=== PATIENT | male | born 1980 | race Caucasian/White ===

== ENCOUNTER 2022-05-14 03:45 | Emergency (ER) | payer BC, OTHER ==
[~2022-05-14] VITALS: Ht 190.5 cm; Wt 111.5 kg
[2022-05-14] MEDS ORDERED: ONDANSETRON 4 MG/2 ML (SDV) Z0FRAN IVP ONE (04:00)
[2022-05-14] MEDS ORDERED: NS IV 1000 ML 1,000 ML IV SCH (04:00)
--- NOTE | 2022-05-14 04:25 | ED General ---
General Chief Complaint: Neurological Problems Stated Complaint: CONFUSION Source of Information: Patient Exam Limitations: No Limitations History of Present Illness Date Seen by Provider: May 14, 2022 Time Seen by Provider: 03:50 Initial Comments Patient is a 41-year-old male who presents with head injury with loss of consciousness after running into a wall while starting out of bed to use the bathroom. Patient had a fever 103.2 prior to bedtime, complained of nausea and diarrhea, sinus and chest congestion and felt the need to use the bathroom when he ran into a wall and had a brief loss of consciousness along with confusion and memory loss. Incident was witnessed by the patient's spouse. Patient is alert and oriented x3 but does complain of headache and neck pain. Patient has a linear abrasion over his left frontal scalp. He has no visible forehead or scalp hematoma and no midline neck tenderness. He complains of nasal congestion postnasal drip. No other symptoms or complaints. Patient is otherwise healthy but does go to doctors on a routine basis. Date of last tetanus is unknown Timing/Duration: 1/2 Hour Severity: Moderate Modifying Factors: improves with Other Associated Systoms: Other Allergies and Home Medications Allergies Coded Allergies: No Known Drug Allergies (Unverified , 05/14/22) Patient Home Medication List Home Medication List Reviewed: Yes Review of Systems Review of Systems Constitutional: see HPI EENTM: see HPI Respiratory: see HPI Cardiovascular: see HPI Gastrointestinal: see HPI Genitourinary: see HPI Musculoskeletal: see HPI Skin: see HPI Psychiatric/Neurological: See HPI Hematologic/Lymphatic: See HPI Immunological/Allergic: see HPI All Other Systems Reviewed Negative Unless Noted: No Past Oawtggk-Srqglk-Mykpse Hx Patient Social History Tobacco Use?: No Physical Exam Vital Signs Capillary Refill : Height, Weight, BMI Height: '" Weight: lbs. oz. kg; BMI Method: General Appearance: No Apparent Distress, WD/WN Eyes: Bilateral Eye Normal Inspection HEENT: PERRL/EOMI, Normal ENT Inspection, Pharynx Normal, Moist Mucous Membranes, Other (Left frontal scalp abrasion, no hematoma or step-off) Neck: Full Range of Motion, Non Tender, Supple; No Limited Range of Motion, No Tender Midline Respiratory: Chest Non Tender, Lungs Clear, Normal Breath Sounds, No Accessory Muscle Use Cardiovascular: Regular Rate, Rhythm Gastrointestinal: Non Tender, Soft Extremity: Normal Capillary Refill, Normal Inspection, Normal Range of Motion Neurologic/Psychiatric: Alert, Oriented x3, No Motor/Sensory Deficits, microsoft dynamics ax developer II- XII Norm as Tested, Other Skin: Normal Color Focused Exam Sepsis Stage: Ruled Out Progress/Results/Core Measures Suspected Sepsis SIRS Temperature: Pulse: Respiratory Rate: Laboratory Tests 05/14/22 04:22: White Blood Count 11.7H Blood Pressure / Mean: Laboratory Tests 05/14/22 04:22: Platelet Count 166 Results/Orders Lab Results Laboratory Tests Test 05/14/22 04:22 Range/Units White Blood Count 11.7 H 4.3-11.0 10^3/uL Red Blood Count 5.39 4.30-5.52 10^6/uL Hemoglobin 16.3 13.3-17.7 g/dL Hematocrit 47 40-54 % Mean Corpuscular Volume 87 80-99 fL Mean Corpuscular Hemoglobin 30 25-34 pg Mean Corpuscular Hemoglobin Concent 35 32-36 g/dL Red Cell Distribution Width 12.4 10.0-14.5 % Platelet Count 166 130-400 10^3/uL Mean Platelet Volume 11.9 9.0-12.2 fL Immature Granulocyte % (Auto) 1 % Neutrophils (%) (Auto) 79 H 42-75 % Lymphocytes (%) (Auto) 8 L 12-44 % Monocytes (%) (Auto) 11 0-12 % Eosinophils (%) (Auto) 0 0-10 % Basophils (%) (Auto) 0 0-10 % Neutrophils # (Auto) 9.3 H 1.8-7.8 10^3/uL Lymphocytes # (Auto) 1.0 1.0-4.0 10^3/uL Monocytes # (Auto) 1.3 H 0.0-1.0 10^3/uL Eosinophils # (Auto) 0.0 0.0-0.3 10^3/uL Basophils # (Auto) 0.1 0.0-0.1 10^3/uL Immature Granulocyte # (Auto) 0.1 0.0-0.1 10^3/uL My Orders Orders - PATRICIA LEVINE DO Cbc With Automated Diff (05/14/22 03:51) Comprehensive Metabolic Panel (05/14/22 03:51) Troponin I Fs (05/14/22 03:51) Chest 1 View Ap/Pa Only (05/14/22 03:51) Ekg Tracing (05/14/22 03:51) Ct Head/Neck Wo (05/14/22 03:51) Covid 19 Inhouse Test (05/14/22 03:51) Influenza A And B By Pcr (05/14/22 03:51) Isolation Central Supply Req (05/14/22 03:51) Ns Iv 1000 Ml (Sodium Chloride 0.9%) (05/14/22 04:00) Ondansetron Injection (Zofran Injectio (05/14/22 04:00) Dipht,Pertuss(Acell),Tet Adult (Boostrix (05/14/22 04:45) Ketorolac Injection (Toradol Injection) (05/14/22 04:45) Medications Given in ED Current Medications Medications Dose Ordered Sig/Raeann Route Start Time Stop Time Status Last Admin Dose Admin Diphtheria/ Tetanus/Acell Pertussis 0.5 ml ONCE ONCE IM 05/14/22 04:45 05/14/22 04:48 DC 05/14/22 04:41 0.5 ML Ketorolac Tromethamine 30 mg ONCE ONCE IVP 05/14/22 04:45 05/14/22 04:48 DC 05/14/22 04:39 30 MG Ondansetron HCl 4 mg ONCE ONCE IVP 05/14/22 04:00 05/14/22 04:01 DC 05/14/22 04:35 4 MG Vital Signs/I&O Capillary Refill : Departure Communication (Admissions) CT head/cervical spine: No acute findings per radiology report. Chest x-ray: No acute cardiopulmonary disease. Patient with retrograde memory loss with concussion following witnessed head injury. CT head/cervical spine being nonacute. Patient with acute viral syndrome with upper respiratory and GI components. IV fluids given, chest x- ray, basic labs obtained. Symptoms improved with Toradol, Zofran and IV fluids. COVID-positive. Recommendations supportive care, watchful waiting and PCP follow-up. Return precautions and typical closed head injury instructions provided. Patient's spouse verbalizes understanding agreement discharge instructions prior to departure peer Impression Primary Impression: Concussion with loss of consciousness Additional Impressions: Acute cervical sprain COVID-19 Disposition: 01 HOME, SELF-CARE Condition: Stable Departure-Patient Inst. Decision time for Depature: 04:50 Referrals: SULAIMAN MILLER MD (PCP/Family) Primary Care Physician Patient Instructions: Neck Sprain (DC), Concussion in Adults, COVID-19 (DC) Add. Discharge Instructions: You were evaluated in the emergency department for head injury, neck pain, fever and viral symptoms. CT of the head and neck were performed do not show evidence of acute injury. Lab work is positive for COVID. Please go home and rest, avoid strenuous physical activity stimulating environments. Take Tylenol for headache and Zofran as needed for nausea. You may take ibuprofen and Flexeril as needed for additional pain relief and use albuterol as needed for shortness of breath. Follow-up with your PCP in 5-7 days for reevaluation if viral symptoms persist. Return to the ED if you develop new or concerning symptoms. All discharge instructions reviewed with patient and/or family. Voiced understanding. Scripts Albuterol Sulfate (Proventil Hfa) 6.7 Gm Hfa.aer.ad 2 PUFF INH Q6H for SHORTNESS OF BREATH, #1 EACH Prov: PATRICIA LEVINE DO 05/14/22 Cyclobenzaprine HCl (Cyclobenzaprine HCl) 10 Mg Tablet 10 MG PO TID, #30 TAB Prov: PATRICIA LEVINE DO 05/14/22 Ondansetron (Ondansetron Odt) 4 Mg Tab.rapdis 4 MG SL Q4H PRN for NAUSEA/VOMITING, #12 TAB Prov: PATRICIA LEVINE DO 05/14/22 Work/School Note: Family Work Note Patient Received Medical Care In the Emergency Department On: May 14, 2022 Patient Will Be Able to Return to Work/School On: May 19, 2022 PATRICIA LEVINE DO May 14, 2022 04:24
[2022-05-14 04:27] LABS: BASOPHILS # (AUTO) 0.1 10^3/uL (0.0-0.1); BASOPHILS % (AUTO) 0 % (0-10); EOSINOPHILS % (AUTO) 0 % (0-10); HEMATOCRIT 47 % (40-54); HEMOGLOBIN 16.3 g/dL (13.3-17.7); LYMPHOCYTES % (AUTO) 8 % (12-44); MEAN CORPUSCULAR HEMOGLOBIN 30 pg (25-34); MEAN CORPUSCULAR HGB CONC 35 g/dL (32-36); MEAN CORPUSCULAR VOLUME 87 fL (80-99); MEAN PLATELET VOLUME 11.9 fL (9.0-12.2); MONOCYTES # (AUTO) 1.3 10^3/uL (0.0-1.0); MONOCYTES % (AUTO) 11 % (0-12); NEUTROPHILS # (AUTO) 9.3 10^3/uL (1.8-7.8); NEUTROPHILS % (AUTO) 79 % (42-75); PLATELET COUNT 166 10^3/uL (130-400); WHITE BLOOD COUNT 11.7 10^3/uL (4.3-11.0)
[2022-05-14] MEDS ORDERED: TETANUS,DIPTH,PERTUSS P/F (BOOSTRIX) 0.5 ML VIAL IM ONE (04:45)
[2022-05-14] MEDS ORDERED: KETOROLAC 30 MG/ML VIAL IVP ONE (04:45)
[2022-05-14 04:48] LABS: CHLORIDE 102 MMOL/L (98-107); SODIUM 138 MMOL/L (135-145)
[2022-05-14 04:49] LABS: ALANINE AMINOTRANSFERASE 50 U/L (0-55); ALBUMIN 4.6 GM/DL (3.2-4.5); ALKALINE PHOSPHATASE 93 U/L (40-136); BILIRUBIN,TOTAL 0.5 MG/DL (0.1-1.0); BUN/CREATININE RATIO 12; CALCIUM 9.3 MG/DL (8.5-10.1); CARBON DIOXIDE 21 MMOL/L (21-32); GFR ESTIMATED 98; GLUCOSE 151 MG/DL (70-105); TOTAL PROTEIN 7.4 GM/DL (6.4-8.2)
[2022-05-14] MEDS ORDERED: ONDA4TAB11 SL (04:58)
[2022-05-14] MEDS ORDERED: RT-ALBUINH INH (04:58)
[2022-05-14] MEDS ORDERED: CYCL10TA25 PO (04:58)
[2022-05-14 05:29] VITALS: BP 125/69
--- NOTE | 2022-05-14 06:17 | Diagnostic Imaging Report ---
INDICATION: trauma, headache. TECHNIQUE: Single view chest 4:18 AM. CORRELATION STUDY: None FINDINGS: The heart size, mediastinal configuration and pulmonary vascularity are within normal limits. The lungs are clear with no consolidating infiltrate. There is no significant effusion or pneumothorax. IMPRESSION: 1. Negative appearing single view chest. Dictated by: Dictated on workstation # [id number]
--- NOTE | 2022-05-14 06:25 | Diagnostic Imaging Report ---
PROCEDURE: CT head and neck without contrast. TECHNIQUE: Contiguous axial images were obtained from the skull base through the vertex. Noncontrast axial images were then obtained of the soft tissue of the neck. Auto Exposure Controls were utilized during the CT exam to meet ALARA standards for radiation dose reduction. INDICATION: Head and neck injury. CT HEAD: Ventricles and sulci are within normal limits. No sulcal effacement or midline shift is identified. No acute intra-axial or extra-axial hemorrhage is detected. Cisterns are patent. Visualized paranasal sinuses are clear. IMPRESSION: Unremarkable noncontrast CT of the brain. No acute feature is detected. CT cervical spine: Curvature and alignment of the cervical spine is normal. No fracture or subluxation is identified. Prevertebral tissues are within normal limits. Odontoid is intact. IMPRESSION: No acute bony abnormality is detected. Dictated by: Dictated on workstation # [id number]
== END 2022-05-14 05:29 | disposition home or self-care (01) ==
LOC: ER FS 03:50
DX: S06.0X1A Concussion with loss of consciousness of 30 minutes or less, initial encounter (principal); S13.4XXA Sprain of ligaments of cervical spine, initial encounter; S00.01XA Abrasion of scalp, initial encounter; U07.1 COVID-19; Z28.310 Unvaccinated for COVID-19; Z23 Encounter for immunization; W13.3XXA Fall through floor, initial encounter; Y93.02 Activity, running
CPT/HCPCS: 36415; 70450; 70490; 71045; 80053; 84484; 85025; 87636; 90715

== ENCOUNTER 2022-10-15 20:09 | Day surgery (SDC) | payer BC ==
[~2022-10-15] VITALS: Ht 190 cm; Wt 110.5 kg
[~2022-10-15 20:09] MED LIST: CYCL10TA25 PO; ONDA4TAB11 SL; RT-ALBUINH INH
--- NOTE | 2022-10-15 20:24 | ED Chest Pain ---
General Chief Complaint: Chest Pain Stated Complaint: CHEST PAIN |SOB| Nursing Triage Note: PATIENT STATES 1500 TODAY STARTED HAVING CHEST FLUTTERING AND TIGHTNESS. DENIES PAIN. STATES HASN'T GOTTEN ANY BETTER. Source: patient Exam Limitations: no limitations History of Present Illness Date Seen by Provider: Oct 15, 2022 Time Seen by Provider: 20:13 Initial Comments 42-year-old male presents emergency department today for chest tightness and palpitations. Symptoms started about 330 this afternoon and have been persistent throughout the day. He has had similar episodes with excess caffeine intake in the past however symptoms have never lasted this long. He does have some mild shortness of breath within the pain does radiate to his left elbow slightly. No obvious aggravating or alleviating factors. He has no known cardiac history or pulmonary history. He takes no daily medications. All other systems reviewed and negative except documented per HPI. Voice recognition software was used to help create this chart Allergies and Home Medications Allergies Coded Allergies: No Known Drug Allergies (Unverified , 05/14/22) Patient Home Medication List Home Medication List Reviewed: Yes Albuterol Sulfate (Proventil Hfa) 6.7 Gm Hfa.aer.ad, 2 PUFF INH Q6H Prescribed by: PATRICIA LEVINE on 05/14/22 0458 Cyclobenzaprine HCl (Cyclobenzaprine HCl) 10 Mg Tablet, 10 MG PO TID Prescribed by: PATRICIA LEVINE on 05/14/22 0458 Ondansetron (Ondansetron Odt) 4 Mg Tab.rapdis, 4 MG SL Q4H PRN for NAUSEA/VOMITING Prescribed by: PATRICIA LEVINE on 05/14/22 0458 Review of Systems Review of Systems Constitutional: see HPI Past Zhawrwy-Ipsfde-Dpaigj Hx Patient Social History Tobacco Use?: No Use of E-Cig and/or Vaping dev: No Substance use?: No Alcohol Use?: Yes Alcohol type: Beer Alcohol Frequency: Once in a while Immunizations Up To Date First/Initial COVID19 Vaccinat: Unvaccinated Second COVID19 Vaccination Tru: Unvaccinated Third COVID19 Vaccination Date: Unvaccinated Physical Exam Vital Signs Vital Signs - First Documented 10/15/22 10/15/22 20:14 20:25 Pulse 88 Resp 20 B/P (MAP) 161/87 (111) Pulse Ox 99 O2 Delivery Room Air O2 Flow Rate 2.00 Capillary Refill : Less Than 3 Seconds Height, Weight, BMI Height: '" Weight: lbs. oz. kg; 30.00 BMI Method: General Appearance: No Apparent Distress, WD/WN HEENT: Normal ENT Inspection, Pharynx Normal Neck: Normal Inspection, Non Tender, Supple Respiratory: Chest Non Tender, Lungs Clear, Normal Breath Sounds, No Accessory Muscle Use, No Respiratory Distress Cardiovascular: Regular Rate, Rhythm, No Murmur, Normal Peripheral Pulses, Other (occasional PAC's on bedside monitor) Gastrointestinal: Normal Bowel Sounds, No Organomegaly, Non Tender, Soft Extremity: Normal Capillary Refill, Normal Range of Motion Neurologic/Psychiatric: Alert, Oriented x3 Critical Care Note Critical Care Total Time (minutes) 45 Progress/Results/Core Measures Results/Orders Lab Results Laboratory Tests Test 10/15/22 20:20 Range/Units White Blood Count 9.1 4.3-11.0 10^3/uL Red Blood Count 5.21 4.30-5.52 10^6/uL Hemoglobin 15.7 13.3-17.7 g/dL Hematocrit 47 40-54 % Mean Corpuscular Volume 90 80-99 fL Mean Corpuscular Hemoglobin 30 25-34 pg Mean Corpuscular Hemoglobin Concent 34 32-36 g/dL Red Cell Distribution Width 12.5 10.0-14.5 % Platelet Count 179 130-400 10^3/uL Mean Platelet Volume 11.9 9.0-12.2 fL Immature Granulocyte % (Auto) 0 % Neutrophils (%) (Auto) 60 42-75 % Lymphocytes (%) (Auto) 28 12-44 % Monocytes (%) (Auto) 10 0-12 % Eosinophils (%) (Auto) 2 0-10 % Basophils (%) (Auto) 1 0-10 % Neutrophils # (Auto) 5.5 1.8-7.8 10^3/uL Lymphocytes # (Auto) 2.5 1.0-4.0 10^3/uL Monocytes # (Auto) 0.9 0.0-1.0 10^3/uL Eosinophils # (Auto) 0.2 0.0-0.3 10^3/uL Basophils # (Auto) 0.1 0.0-0.1 10^3/uL Immature Granulocyte # (Auto) 0.0 0.0-0.1 10^3/uL Prothrombin Time 11.9 L 12.2-14.7 SEC INR Comment 0.8 0.8-1.4 Activated Partial Thromboplast Time 26 24-35 SEC Sodium Level 143 135-145 MMOL/L Potassium Level 4.1 3.6-5.0 MMOL/L Chloride Level 105 98-107 MMOL/L Carbon Dioxide Level 28 21-32 MMOL/L Anion Gap 10 5-14 MMOL/L Blood Urea Nitrogen 16 7-18 MG/DL Creatinine 0.91 0.60-1.30 MG/DL Estimat Glomerular Filtration Rate 109 BUN/Creatinine Ratio 18 Glucose Level 119 H 70-105 MG/DL Calcium Level 9.7 8.5-10.1 MG/DL Corrected Calcium 8.5-10.1 MG/DL Magnesium Level 2.4 1.6-2.4 MG/DL Total Bilirubin 0.3 0.1-1.0 MG/DL Aspartate Amino Transf (AST/SGOT) 25 5-34 U/L Alanine Aminotransferase (ALT/SGPT) 51 0-55 U/L Alkaline Phosphatase 105 40-136 U/L Troponin I < 0.30 <0.30 NG/ML Total Protein 6.9 6.4-8.2 GM/DL Albumin 4.7 H 3.2-4.5 GM/DL My Orders Orders - MARLENE TAO DO Cbc With Automated Diff (10/15/22 20:18) Magnesium (10/15/22 20:18) Chest 1 View Ap/Pa Only (10/15/22 20:18) Ekg Tracing (10/15/22 20:18) Comprehensive Metabolic Panel (10/15/22 20:18) Protime With Inr (10/15/22 20:18) Partial Thromboplastin Time (10/15/22 20:18) Monitor-Rhythm Ecg Trace Only (10/15/22 20:18) Aspirin Chewable Tablet (Aspirin Chewabl (10/15/22 20:30) Nitroglycerin 0.4 Mg Btl 25's (Nitroglyc (10/15/22 20:30) Ed Iv/Invasive Line Start (10/15/22 20:18) Troponin I Fs (10/15/22 20:18) Heparin (Bolus Per Protocol) (Heparin (B (10/15/22 20:30) Ticagrelor Tablet (Brilinta Tablet) (10/15/22 20:30) Medications Given in ED Current Medications Medications Dose Ordered Sig/Raeann Route Start Time Stop Time Status Last Admin Dose Admin Aspirin 324 mg ONCE ONCE PO 10/15/22 20:30 10/15/22 20:31 DC 10/15/22 20:25 324 MG Nitroglycerin 0.4 mg UD PRN SL 10/15/22 20:30 10/15/22 20:26 0.4 MG Ticagrelor 180 mg ONCE ONCE PO 10/15/22 20:30 10/15/22 20:31 DC 10/15/22 20:33 180 MG Vital Signs/I&O 10/15/22 10/15/22 10/15/22 20:14 20:25 20:45 Pulse 88 101 Resp 20 20 B/P (MAP) 161/87 (111) 124/82 Pulse Ox 99 98 98 O2 Delivery Room Air Nasal Cannula Nasal Cannula O2 Flow Rate 2.00 2.00 Blood Pressure Mean: 111 EKG : Comment Sinus rhythm with a rate of 80 bpm. Normal intervals. Normal axis. ST elevations in V34 and 5. Slight ST depression in lead I. Positive for STEMI. Departure Communication (Admissions) EKG meets STEMI criteria. Spoke to Dr Mercedes at 2019, accepts transfer. Requests 5000u heparin, 180mg Brillinta. He has already had aspirin, and nitro. He is tr ansported in stable condition. Impression Primary Impression: STEMI (ST elevation myocardial infarction) Qualified Codes: I21.3 - ST elevation (STEMI) myocardial infarction of unspecified site Disposition: 30 STILL A PATIENT Condition: Stable Admissions Decision to Admit Reason: Admit from ER (General) Departure-Patient Inst. Referrals: SULAIMAN MILLER MD (PCP/Family) Primary Care Physician MARLENE TAO DO Oct 15, 2022 20:24
[2022-10-15] MEDS ORDERED: NITROGLYCERIN 0.4 MG SL TABLETS BTL 25'S SL PRN (20:30)
[2022-10-15] MEDS ORDERED: HEParin 1000 UNIT/ML (10ML VIAL) FOR BOLUS IV SCH (20:30)
[2022-10-15] MEDS ORDERED: ASPIRIN 81 MG CHEWABLE TABLET PO ONE (20:30)
[2022-10-15] MEDS ORDERED: TICAGRELOR 90 MG TABLET (BRILINTA) PO ONE (20:30)
[2022-10-15 20:34] LABS: BASOPHILS # (AUTO) 0.1 10^3/uL (0.0-0.1); BASOPHILS % (AUTO) 1 % (0-10); EOSINOPHILS # (AUTO) 0.2 10^3/uL (0.0-0.3); EOSINOPHILS % (AUTO) 2 % (0-10); HEMATOCRIT 47 % (40-54); HEMOGLOBIN 15.7 g/dL (13.3-17.7); LYMPHOCYTES # (AUTO) 2.5 10^3/uL (1.0-4.0); LYMPHOCYTES % (AUTO) 28 % (12-44); MEAN CORPUSCULAR HEMOGLOBIN 30 pg (25-34); MEAN CORPUSCULAR HGB CONC 34 g/dL (32-36); MEAN CORPUSCULAR VOLUME 90 fL (80-99); MEAN PLATELET VOLUME 11.9 fL (9.0-12.2); MONOCYTES # (AUTO) 0.9 10^3/uL (0.0-1.0); MONOCYTES % (AUTO) 10 % (0-12); NEUTROPHILS # (AUTO) 5.5 10^3/uL (1.8-7.8); NEUTROPHILS % (AUTO) 60 % (42-75); PLATELET COUNT 179 10^3/uL (130-400); WHITE BLOOD COUNT 9.1 10^3/uL (4.3-11.0)
[2022-10-15 20:39] LABS: INR 0.8 (0.8-1.4); PROTHROMBIN TIME PATIENT 11.9 SEC (12.2-14.7)
[2022-10-15 20:48] LABS: BUN/CREATININE RATIO 18; CARBON DIOXIDE 28 MMOL/L (21-32); CHLORIDE 105 MMOL/L (98-107); CREATININE SERUM 0.91 MG/DL (0.60-1.30); GFR ESTIMATED 109; GLUCOSE 119 MG/DL (70-105); POTASSIUM 4.1 MMOL/L (3.6-5.0); SODIUM 143 MMOL/L (135-145)
[2022-10-15 20:49] LABS: ALANINE AMINOTRANSFERASE 51 U/L (0-55); ALBUMIN 4.7 GM/DL (3.2-4.5); ALKALINE PHOSPHATASE 105 U/L (40-136); BILIRUBIN,TOTAL 0.3 MG/DL (0.1-1.0); CALCIUM 9.7 MG/DL (8.5-10.1); MAGNESIUM 2.4 MG/DL (1.6-2.4); TOTAL PROTEIN 6.9 GM/DL (6.4-8.2)
[2022-10-15] MEDS ORDERED: MIDAZOLAM INJ 5 MG/5 ML VIAL ONE (20:54)
[2022-10-15] MEDS ORDERED: fentaNYL INJECTION 100 MCG/2 ML VIAL ONE (20:54)
[2022-10-15] MEDS ORDERED: HEParin (CATH LAB) 2,000 ML IV ONE (20:55)
[2022-10-15] MEDS ORDERED: NS IV 1000 ML 1,000 ML ONE (20:55)
[2022-10-15] MEDS ORDERED: LIDOCAINE 1% INJ 20 ML VIAL ONE (20:55)
[2022-10-15] MEDS ORDERED: NITRO DRIP 25000 MCG/D5W 0 ML IV ONE (21:04)
[2022-10-15] MEDS ORDERED: HEParin 1000 UNIT/ML (10ML VIAL) FOR BOLUS ONE (21:04)
--- NOTE | 2022-10-15 21:08 | Diagnostic Imaging Report ---
CHEST 1 VIEW AP/PA ONLY INDICATION: Chest pain. COMPARISON: Chest radiograph 05/14/2022. FINDINGS: Lungs: Normal lung volume. No focal consolidation. Stable pulmonary vasculature. Pleura: No pleural effusion or pneumothorax. Heart and Mediastinum: Cardiomediastinal silhouette and great vessels of the thorax are stable. Osseous Structures and Soft Tissues: No acute osseous abnormality. Normal soft tissues. IMPRESSION: No acute cardiopulmonary process. Dictated by: Dictated on workstation # [id number]
--- NOTE | 2022-10-15 21:53 | History & Physicial-Cardiolgy ---
HPI-Cardiology Cardiology Consultation: Date of Consultation 10/15/22 Date of Admission Attending Physician Maximo Price MD Admitting Physician Admitting Physician: Attending Physician: Myron Mercedes MD Consulting Physician Myron MERCEDES MD HPI: Time Seen by a Provider: 21:21 Chief Complaint: Chest pain This is a 42-year-old gentleman with no significant past medical history. He chews tobacco. Presents with chest pain since 3:30 PM. Severe chest pain at 5 PM. Presented to [facility] with chest discomfort. Family history is unremarkable. Review of Systems-Cardiology Review of Systems Constitutional: no symptoms reported Eyes: no symptoms reported Ears/Nose/Throat: no symptoms reported Respiratory: no symptoms reported Cardiovascular: chest pain Gastrointestinal: no symptoms reported Genitourinary: no symptoms reported Musculoskeletal: no symptoms reported Skin: no symptoms reported JBO-Brsrql-Cnutwp Hx Patient Social History Alcohol Use?: Yes Past Medical History PMH As described under Assessment. Allergies and Home Medications Allergies Coded Allergies: No Known Drug Allergies (Unverified , 05/14/22) Patient Home Medication List Home Medication List Reviewed: Yes Albuterol Sulfate (Proventil Hfa) 6.7 Gm Hfa.aer.ad, 2 PUFF INH Q6H Prescribed by: PATRICIA LEVINE on 05/14/22 0458 Cyclobenzaprine HCl (Cyclobenzaprine HCl) 10 Mg Tablet, 10 MG PO TID Prescribed by: PATRICIA LEVINE on 05/14/22 0458 Ondansetron (Ondansetron Odt) 4 Mg Tab.rapdis, 4 MG SL Q4H PRN for NAUSEA/VOMITING Prescribed by: PATRICIA LEVINE on 05/14/22 0458 Physical Exam-Cardiology Physical Exam Vital Signs/I&O 10/15/22 10/15/22 10/15/22 20:14 20:25 20:45 Pulse 88 101 Resp 20 20 B/P (MAP) 161/87 (111) 124/82 Pulse Ox 99 98 98 O2 Delivery Room Air Nasal Cannula Nasal Cannula O2 Flow Rate 2.00 2.00 Capillary Refill : Less Than 3 Seconds Constitutional: AAO x 3 HEENT: EOMI Respiratory: lungs clear to auscultation Cardiovascular: regular rate-rhythm, S1 and S2; No diastolic murmur, No systolic murmur Gastrointestinal: soft Rectal: deferred Extremities: No pedal edema Neurologic/Psychiatric: no motor/sensory deficits, alert, normal mood/affect, oriented x 3 Skin: normal color, warm/dry Data Review Labs Laboratory Tests 10/15/22 20:20: White Blood Count 9.1, Red Blood Count 5.21, Hemoglobin 15.7, Hematocrit 47, Mean Corpuscular Volume 90, Mean Corpuscular Hemoglobin 30, Mean Corpuscular Hemoglobin Concent 34, Red Cell Distribution Width 12.5, Platelet Count 179, Mean Platelet Volume 11.9, Immature Granulocyte % (Auto) 0, Neutrophils (%) (Auto) 60, Lymphocytes (%) (Auto) 28, Monocytes (%) (Auto) 10, Eosinophils (%) (Auto) 2, Basophils (%) (Auto) 1, Neutrophils # (Auto) 5.5, Lymphocytes # (Auto) 2.5, Monocytes # (Auto) 0.9, Eosinophils # (Auto) 0.2, Basophils # (Auto) 0.1, Immature Granulocyte # (Auto) 0.0, Prothrombin Time 11.9L, INR Comment 0.8, Activated Partial Thromboplast Time 26, Sodium Level 143, Potassium Level 4.1, Chloride Level 105, Carbon Dioxide Level 28, Anion Gap 10, Blood Urea Nitrogen 16, Creatinine 0.91, Estimat Glomerular Filtration Rate 109, BUN/Creatinine Ratio 18, Glucose Level 119H, Calcium Level 9.7, Corrected Calcium , Magnesium Level 2.4, Total Bilirubin 0.3, Aspartate Amino Transf (AST/SGOT) 25, Alanine Aminotransferase (ALT/SGPT) 51, Alkaline Phosphatase 105, Troponin I < 0.30, Total Protein 6.9, Albumin 4.7H ECG Impression ECG Initial ECG Rhythm: Normal Sinus Initial ECG Impression: Nonspecific Changes A/P-Cardiology Assessment/Admission Diagnosis Chest pain Admission Status: Observation Plan Acute chest pain. EKG shows borderline ST deviation in leads I and aVL. STEMI code activated. Emergent coronary angiography will be done. Patient was given aspirin, Brilinta and heparin. Emergent informed consent done. 1% risk of com plication discussed with Clinical Quality Measures AMI/AHF: ASA po Prior to arrival: Myron Sharma MD Oct 15, 2022 21:53
--- NOTE | 2022-10-15 21:57 | Coronary Angiography Report ---
Coronary Angiography Report DATE OF PROCEDURE: 10/15/22 INDICATION: Chest pain, STEMI activation PREOPERATIVE DIAGNOSIS: Chest pain, STEMI activation POSTOPERATIVE DIAGNOSIS: Normal coronaries. HISTORY: This is a 42-year-old gentleman with no significant past medical history or coronary risk factors. Presented with moderate to severe chest pain. EKG shows nonspecific ST changes in the lateral leads. Therefore, the patient was scheduled for coronary angiography. PROCEDURES PERFORMED: 1.Coronary angiography. 2.Left heart catheterization. 3. Aortic arch angiogram: Medical necessity: Patient with moderate to severe chest pain with normal coronaries. Aortic dissection needs to be ruled out. COMPLICATIONS: None. SPECIMENS: None. ESTIMATED BLOOD LOSS: 10 mL ANESTHESIA: Conscious sedation ANTICOAGULATION: IV heparin CONTRAST: 58 ml FLUOROSCOPY: 3.2 minutes FLOUROSCOPY DOSE: 786 mGy PROCEDURE DETAILS: The patient is a 42 male and was brought to the cardiac cath lab radiology technologist after informed consent was taken. All the risks and complications were explained in detail; this included the risk of bleeding, vascular damage, stroke, OR and even . The patient was draped and prepped in the usual sterile fashion. Access was gained in the right femoral artery with a 6 Swedish sheath. Coronary angiography and left heart catheterization was performed with the JR4 and JL4 and pigtail. Aortic arch angiogram was done with the pigtail catheter. FINDINGS: 1.Left main: Patent 2.LAD: Patent 3.Left circumflex artery: Patent 4.RCA: Patent.Initial angiogram showed catheter induced spasm. 5.Left heart catheterization: Aortic pressure 113/78 mmHg. LV pressure 118/5 mmHg. LVEDP 15 mmHg. No gradient across the aortic valve. Normal LV function with no wall motion abnormalities. 6. Aortic arch angiogram: Medical necessity: Patient with moderate to severe chest pain with normal coronaries. Aortic dissection needs to be ruled out. No evidence of thoracic aortic aneurysm or dissection. Normal proximal segments of the great arteries CONCLUSIONS: Normal coronaries. Primary prevention is recommended. Varsha Mercedes MD, FACP, FACC, [facility] Interventional Cardiology Myron MERCEDES MD Oct 15, 2022 21:57
[2022-10-15] MEDS ORDERED: PATIENT MAY USE OWN MEDS, ALL PO SCH (22:00)
[2022-10-15 22:07] VITALS: BP 122/80
[2022-10-15 22:15] VITALS: BP 115/71
[2022-10-15] MEDS: NS IV 1000 ML 1,000 ML IV SCH (22:17)
[2022-10-15 22:30] VITALS: BP 106/68
[2022-10-15 23:15] VITALS: BP 106/73
[2022-10-16] VITALS (8 sets, daily range): BP systolic 110–128; BP diastolic 68–97
[2022-10-16 06:59] LABS: POTASSIUM 3.9 MMOL/L (3.6-5.0)
[2022-10-16 07:01] LABS: CALCIUM 8.6 MG/DL (8.5-10.1)
[2022-10-16 07:05] LABS: CREATININE SERUM 0.89 MG/DL (0.60-1.30)
[2022-10-16 07:36] LABS: HEMATOCRIT 44 % (40-54); HEMOGLOBIN 14.6 g/dL (13.3-17.7); MEAN CORPUSCULAR HEMOGLOBIN 31 pg (25-34); MEAN CORPUSCULAR HGB CONC 34 g/dL (32-36); MEAN CORPUSCULAR VOLUME 91 fL (80-99); PLATELET COUNT 148 10^3/uL (130-400); WHITE BLOOD COUNT 6.1 10^3/uL (4.3-11.0)
[2022-10-16] MEDS: NS IV 1000 ML 1,000 ML IV SCH (08:00)
--- NOTE | 2022-10-16 09:27 | Discharge Inst-Post CATH ---
Discharge Inst-CATH/EP Problems Reviewed?: Yes Post Cardiac Cath/EP D/C Inst Follow Up/Plan Appointment with Dr. Rizo's office in 2 to 4 weeks <b>CARDIAC CATH/EP PROCEDURE DISCHARGE INSTRUCTIONS</b> ACTIVITY * Go Home directly and rest. * Limit activity of the leg (or wrist if it was used) for 7 days including aer obics, swimming, jogging, bicycling, etc. * Restrict stair-climbing for 7 days if possible, if not, climb up with your non-cath leg, then bring together on the same step. * Avoid lifting, pushing, pulling or excessive movement of the affected extremi ty for 7 days. * Customary sexual activity may be resumed after 2 days-use caution not to use a position that strains or causes pain to the affected extremity. * No driving for 24 hours. * NO SMOKING. * Avoid straining for bowel movements for 7 days. * Gentle walking on level ground is allowed. * Returning to work will depend on the type of procedure and the results. Your doctor will discuss this with you. CALL YOUR DOCTOR FOR ANY OF THE FOLLOWING: *If bleeding from the puncture site occurs- Apply gentle pressure to site with clean cloth and call your doctor or EMS. * If a knot or lump forms under the skin, increases in size, or causes pain. * If bruising appears to be worsening or moving further down your leg instead of disappearing. * Temperature above 101 F. CARE OF YOUR GROIN INCISION; * Bruising or purple discoloration of the skin near the puncture site is common. * You may shower only, no bathtub bathing for 5 days. Be careful to avoid slipping as your leg may feel stiff. * If a closure device was used on your femoral artery, please see the attached guide regarding care of the device and your leg. * Leave dressing on FOR 24 hours. CARE OF YOUR WRIST INCISION; * Bruising or purple discoloration of the skin near the puncture site is common. * You may shower. * DO NOT submerge wrist. * Leave dressing on FOR 24 hours. DEWAYNE RIZO MD Oct 16, 2022 09:27
--- NOTE | 2022-10-16 09:30 | Cardiology Discharge Summary ---
Discharge Summary Hospital Course Problems Reviewed?: Yes Hospital Course Date of Admission: Admission Diagnosis : Family Physician/Provider: Maximo Price MD Date of Discharge: 10/16/22 Discharge Diagnosis: [Chest pain Coronary artery disease Palpitation] Hospital Course: [Chest pain, nonspecific etiology Underwent cardiac catheterization with Dr. Mercedes showing nonobstructive disease, spasm in the right coronary artery Recurrent palpitation, reporting multiple episodes of palpitation I will arrange for Zio patch as an outpatient.] Labs and Pending Lab Test: Laboratory Tests 10/15/22 20:20: White Blood Count 9.1, Red Blood Count 5.21, Hemoglobin 15.7, Hematocrit 47, Mean Corpuscular Volume 90, Mean Corpuscular Hemoglobin 30, Mean Corpuscular Hemoglobin Concent 34, Red Cell Distribution Width 12.5, Platelet Count 179, Mean Platelet Volume 11.9, Immature Granulocyte % (Auto) 0, Neutrophils (%) (Auto) 60, Lymphocytes (%) (Auto) 28, Monocytes (%) (Auto) 10, Eosinophils (%) (Auto) 2, Basophils (%) (Auto) 1, Neutrophils # (Auto) 5.5, Lymphocytes # (Auto) 2.5, Monocytes # (Auto) 0.9, Eosinophils # (Auto) 0.2, Basophils # (Auto) 0.1, Immature Granulocyte # (Auto) 0.0, Prothrombin Time 11.9L, INR Comment 0.8, Activated Partial Thromboplast Time 26, Sodium Level 143, Potassium Level 4.1, Chloride Level 105, Carbon Dioxide Level 28, Anion Gap 10, Blood Urea Nitrogen 16, Creatinine 0.91, Estimat Glomerular Filtration Rate 109, BUN/Creatinine Ratio 18, Glucose Level 119H, Calcium Level 9.7, Corrected Calcium , Magnesium Level 2.4, Total Bilirubin 0.3, Aspartate Amino Transf (AST/SGOT) 25, Alanine Aminotransferase (ALT/SGPT) 51, Alkaline Phosphatase 105, Troponin I < 0.30, Total Protein 6.9, Albumin 4.7H 10/16/22 06:22: White Blood Count 6.1, Red Blood Count 4.78, Hemoglobin 14.6, Hematocrit 44, Mean Corpuscular Volume 91, Mean Corpuscular Hemoglobin 31, Mean Corpuscular Hemoglobin Concent 34, Red Cell Distribution Width 12.6, Platelet Count 148, Mean Platelet Volume 12.0, Sodium Level 142, Potassium Level 3.9, Chloride Level 110H, Carbon Dioxide Level 23, Anion Gap 9, Blood Urea Nitrogen 12, Creatinine 0.89, Estimat Glomerular Filtration Rate 110, BUN/Creatinine Ratio 13, Glucose Level 89, Calcium Level 8.6 Home Meds Active Proventil Hfa (Albuterol Sulfate) 6.7 Gm Hfa.aer.ad 2 Puff INH Q6H Cyclobenzaprine HCl 10 Mg Tablet 10 Mg PO TID Ondansetron Odt (Ondansetron) 4 Mg Tab.rapdis 4 Mg SL Q4H PRN Assessment/Pt DC Instructions Chest pain Palpitation Coronary artery disease Discharge Diet: Cardiac Diet Discharge Physical Examination Allergies: Coded Allergies: No Known Drug Allergies (Unverified , 05/14/22) General Appearance: No Apparent Distress, WD/WN HEENT: PERRL/EOMI, TMs Normal, Normal ENT Inspection, Pharynx Normal Respiratory: Chest Non Tender, Lungs Clear, Normal Breath Sounds, No Accessory Muscle Use, No Respiratory Distress Cardiovascular: Regular Rate, Rhythm, No Edema, No Gallop, No JVD, No Murmur, Normal Peripheral Pulses Gastrointestinal: Normal Bowel Sounds, No Organomegaly, No Pulsatile Mass, Non Tender, Soft Extremity: Normal Capillary Refill, Normal Inspection, Normal Range of Motion, Non Tender Skin: Normal Color, Warm/Dry Neurologic/Psychiatric: Alert, Oriented x3, No Motor/Sensory Deficits, Normal Mood/Affect Clinical Quality Measures Admission Status Admission Status: Observation AMI/AHF: ASA po Prior to arrival: DEWAYNE Reynaga MD Oct 16, 2022 09:30
[2022-10-16] MEDS ORDERED: MULT-1030 PO ×2 (09:32)
[2022-10-16] MEDS ORDERED: DIGE1TAB PO ×2 (09:32)
[2022-10-16] MEDS ORDERED: PSYL3.4P5 PO ×2 (09:32)
--- NOTE | 2022-10-23 14:18 | Conscious Sedation/ASA ---
Moderate Sedation PreProcedure ASA Score Airway Lungs Heart ASA score ASA 1: a normal healthy patient ASA 2: a patient with a mild systemic disease (mid diabetes, controlled hypertension, obesity ASA 3: a patient with a severe systemic disease that limits activity (angina, COPD, prior Myocardial infarction) ASA 4: a patient with an incapacitating disease that is a constant threat to life (CHF, renal failure) ASA 5: a moribund patient not expected to survive 24 hrs. (ruptured aneurysm) ASA 6: a declared brain- patient whose organs are being harvested. For emergent operations, add the letter E after the classification Sedation Plan The patient is an appropriate candidate to undergo the planned procedure, sedation, and anesthesia. The patient immediately re-assessed prior to indication. ARJUN,FebOct 23, 2022 14:18
== END 2022-10-16 10:20 | disposition home or self-care (01) ==
LOC: EDUNIT# 20:09 → ER FS 20:11 → CATH 21:16 → ICU 22:05 → CATH 22:05
PROVIDERS: ATTEND Internal Medicine Interventional Cardiology
DX: R07.89 Other chest pain (principal); I21.3 ST elevation (STEMI) myocardial infarction of unspecified site; I25.10 Atherosclerotic heart disease of native coronary artery without angina pectoris; R00.2 Palpitations; F17.220 Nicotine dependence, chewing tobacco, uncomplicated; Z28.310 Unvaccinated for COVID-19
CPT/HCPCS: 36221; 36415; 71045; 80048; 80053; 83735; 84484; 85025; 85027; 85610; 85730; 93005 ×2; 93041; 93458; 99284; C1760; C1894

== ENCOUNTER 2022-10-20 18:06 | Emergency (ER) | payer BC ==
[~2022-10-20] VITALS: Ht 190.5 cm; Wt 111.5 kg
[~2022-10-20 18:06] MED LIST changes: +DIGE1TAB PO; +MULT-1030 PO; +PSYL3.4P5 PO
[2022-10-20 18:37] LABS: BASOPHILS % (AUTO) 1 % (0-10); EOSINOPHILS # (AUTO) 0.1 10^3/uL (0.0-0.3); EOSINOPHILS % (AUTO) 2 % (0-10); HEMATOCRIT 45 % (40-54); HEMOGLOBIN 15.6 g/dL (13.3-17.7); LYMPHOCYTES # (AUTO) 1.8 10^3/uL (1.0-4.0); LYMPHOCYTES % (AUTO) 23 % (12-44); MEAN CORPUSCULAR HEMOGLOBIN 31 pg (25-34); MEAN CORPUSCULAR HGB CONC 35 g/dL (32-36); MEAN CORPUSCULAR VOLUME 88 fL (80-99); MEAN PLATELET VOLUME 11.8 fL (9.0-12.2); MONOCYTES # (AUTO) 0.8 10^3/uL (0.0-1.0); MONOCYTES % (AUTO) 11 % (0-12); NEUTROPHILS % (AUTO) 64 % (42-75); PLATELET COUNT 178 10^3/uL (130-400); WHITE BLOOD COUNT 7.8 10^3/uL (4.3-11.0)
[2022-10-20 18:39] LABS: ALBUMIN 4.5 GM/DL (3.2-4.5); CHLORIDE 108 MMOL/L (98-107); POTASSIUM 3.8 MMOL/L (3.6-5.0)
[2022-10-20 18:40] LABS: SODIUM 141 MMOL/L (135-145)
[2022-10-20 18:41] LABS: CALCIUM 9.2 MG/DL (8.5-10.1)
[2022-10-20 18:42] LABS: GLUCOSE 111 MG/DL (70-105); TOTAL PROTEIN 7.1 GM/DL (6.4-8.2)
[2022-10-20 18:43] LABS: CARBON DIOXIDE 21 MMOL/L (21-32)
[2022-10-20 18:44] LABS: BILIRUBIN,TOTAL 0.5 MG/DL (0.1-1.0)
[2022-10-20 18:45] LABS: ALKALINE PHOSPHATASE 93 U/L (40-136); CREATININE SERUM 0.86 MG/DL (0.60-1.30); GFR ESTIMATED 112
[2022-10-20 18:46] LABS: BUN/CREATININE RATIO 19
[2022-10-20 18:48] LABS: ALANINE AMINOTRANSFERASE 50 U/L (0-55)
[2022-10-20 18:49] LABS: MAGNESIUM 2.3 MG/DL (1.6-2.4)
--- NOTE | 2022-10-20 19:40 | ED Cardiac General ---
History of Present Illness General Chief Complaint: Chest Pain Stated Complaint: HEART FLUTERING/TIGHTNESS Nursing Triage Note: PATIENT REPORTS CHEST FLUTTERING, PRESSURE. PATIENT STATES SAME WHEN HE WAS HERE SUNDAY. STATES SENT TO [facility]. PATIENT STATES CATH WAS "CLEAN" PATIENT STATES WOKE FROM [place] WITH FLUTTERING. STATES COMES AND GOES Source: patient, family () Exam Limitations: no limitations History of Present Illness Date Seen by Provider: Oct 20, 2022 Time Seen by Provider: 18:12 Initial Comments Patient is a 42 male who presents to the emergency room with a chief complaint of chest "fluttering" and a feeling of pressure. He states that his symptoms woke him up this afternoon. He states he can feel something irregular in his chest. He was recently at the [facility] in [place] and sent as a "STEMI" to [place] where he had heart catheterization that showed clean coronary arteries. A Zio patch monitor was placed at discharge. Patient has a history of hypertension and hypercholesterolemia. He is a non-smoker. The pain that he is describing does not radiate, he is not really short of breath, he does not have any associated sweating. He states it seems to come and go. In examining the patient it is quite obvious he is having PACs and that is the point at which she has his discomfort. These are fairly infrequent. No recent fevers, chills. No prolonged immobility. No concerning risk factors for pulmonary embolism/DVT. He does seem quite anxious. Timing/Duration: 1-3 hours Severity: moderate Location: central Activities at Onset: none Prior CP/Workup: cardiac cath NTG SL UNDERGROUND DISTRIBUTION ENGINEER: No ASA po UNDERGROUND DISTRIBUTION ENGINEER: No Associated Systoms: Chest Pain Allergies and Home Medications Allergies Coded Allergies: No Known Drug Allergies (Unverified , 05/14/22) Patient Home Medication List Home Medication List Reviewed: Yes Digestive 8/L.acidoph/Pectin (Digestive Enzymes Tablet) 50 Million Cell-100 Mg Tablet, 1 EACH PO DAILY PRN for GI UPSET, (Reported) Entered as Reported by: CORTEZ BOOKER on 10/16/22 0932 Multivits,Ca,Min/Iron/FA/Lycop (Centrum Men's Tablet) 8 Mg Iron-200 Mcg-600 Mcg Tablet, 1 EACH PO DAILY, (Reported) Entered as Reported by: CORTEZ BOOKER on 10/16/22 0932 Psyllium Husk/Aspartame (Metamucil Fiber Singles Packet) 3.4 Gram Powd.pack, 3.4 GM PO DAILY, (Reported) Entered as Reported by: CORTEZ BOOKER on 10/16/22 0932 Review of Systems Review of Systems Constitutional: see HPI EENTM: No Symptoms Reported Respiratory: No Symptoms Reported Cardiovascular: Irregular Heart Rate, Palpitations Gastrointestinal: No Symptoms Reported Genitourinary: No Symptoms Reported Musculoskeletal: no symptoms reported Skin: no symptoms reported Psychiatric/Neurological: No Symptoms Reported Past Udgnnrg-Wfdpkh-Bqomcm Hx Immunizations Up To Date Influenza Vaccine Up-to-Date: No; Not Current First/Initial COVID19 Vaccinat: Unvaccinated Second COVID19 Vaccination Tru: Unvaccinated Third COVID19 Vaccination Date: Unvaccinated Past Medical History Surgery/Hospitalization HX: HEART CATH 2022 Physical Exam Vital Signs Vital Signs - First Documented 10/20/22 18:11 Temp 36.4 Pulse 94 Resp 20 B/P (MAP) 142/100 (114) Pulse Ox 98 O2 Delivery Room Air Capillary Refill : Less Than 3 Seconds Height, Weight, BMI Height: '" Weight: lbs. oz. kg; 30.00 BMI Method: General Appearance: WD/WN, Anxious HEENT: PERRL/EOMI Neck: Normal Inspection Respiratory: Lungs Clear, Normal Breath Sounds, No Accessory Muscle Use, No Respiratory Distress Cardiovascular: Regular Rate, Rhythm, Normal Peripheral Pulses, Other (obvious ectopic beats noted on telemetry that correlate with the patient's symptoms) Gastrointestinal: Non Tender, Soft Extremity: Normal Inspection, Normal Range of Motion, Non Tender, No Calf Tenderness Neurologic/Psychiatric: Alert, Oriented x3, No Motor/Sensory Deficits, Normal Mood/Affect, early breastfeeding care specialist II-XII Norm as Tested Skin: Normal Color, Warm/Dry Progress/Results/Core Measures Results/Orders Lab Results Laboratory Tests Test 10/20/22 18:20 Range/Units White Blood Count 7.8 4.3-11.0 10^3/uL Red Blood Count 5.12 4.30-5.52 10^6/uL Hemoglobin 15.6 13.3-17.7 g/dL Hematocrit 45 40-54 % Mean Corpuscular Volume 88 80-99 fL Mean Corpuscular Hemoglobin 31 25-34 pg Mean Corpuscular Hemoglobin Concent 35 32-36 g/dL Red Cell Distribution Width 12.3 10.0-14.5 % Platelet Count 178 130-400 10^3/uL Mean Platelet Volume 11.8 9.0-12.2 fL Immature Granulocyte % (Auto) 0 % Neutrophils (%) (Auto) 64 42-75 % Lymphocytes (%) (Auto) 23 12-44 % Monocytes (%) (Auto) 11 0-12 % Eosinophils (%) (Auto) 2 0-10 % Basophils (%) (Auto) 1 0-10 % Neutrophils # (Auto) 5.0 1.8-7.8 10^3/uL Lymphocytes # (Auto) 1.8 1.0-4.0 10^3/uL Monocytes # (Auto) 0.8 0.0-1.0 10^3/uL Eosinophils # (Auto) 0.1 0.0-0.3 10^3/uL Basophils # (Auto) 0.0 0.0-0.1 10^3/uL Immature Granulocyte # (Auto) 0.0 0.0-0.1 10^3/uL Sodium Level 141 135-145 MMOL/L Potassium Level 3.8 3.6-5.0 MMOL/L Chloride Level 108 H 98-107 MMOL/L Carbon Dioxide Level 21 21-32 MMOL/L Anion Gap 12 5-14 MMOL/L Blood Urea Nitrogen 16 7-18 MG/DL Creatinine 0.86 0.60-1.30 MG/DL Estimat Glomerular Filtration Rate 112 BUN/Creatinine Ratio 19 Glucose Level 111 H 70-105 MG/DL Calcium Level 9.2 8.5-10.1 MG/DL Corrected Calcium 8.8 8.5-10.1 MG/DL Magnesium Level 2.3 1.6-2.4 MG/DL Total Bilirubin 0.5 0.1-1.0 MG/DL Aspartate Amino Transf (AST/SGOT) 26 5-34 U/L Alanine Aminotransferase (ALT/SGPT) 50 0-55 U/L Alkaline Phosphatase 93 40-136 U/L Troponin I < 0.028 <0.028 NG/ML Total Protein 7.1 6.4-8.2 GM/DL Albumin 4.5 3.2-4.5 GM/DL Thyroid Stimulating Hormone (TSH) 2.55 0.35-4.94 UIU/ML My Orders Orders - ALY LANGE MD Ekg Tracing (10/20/22 18:12) Cbc With Automated Diff (10/20/22 18:29) Comprehensive Metabolic Panel (10/20/22 18:29) Troponin I Lloyd (10/20/22 18:29) Magnesium (10/20/22 18:29) Thyroid Stimulating Hormone (10/20/22 18:29) Vital Signs/I&O 10/20/22 10/20/22 18:11 19:52 Temp 36.4 Pulse 94 82 Resp 20 20 B/P (MAP) 142/100 (114) 126/86 Pulse Ox 98 97 O2 Delivery Room Air Room Air Blood Pressure Mean: 114 Progress Progress Note : Time: 19:34 Progress Note Patient seen and evaluated by me. Evaluation today includes physical exam, CBC, Chem-12, magnesium level and serum troponin. Patient also had EKG. Pertinent physical exam findings well-developed well-nourished male in some mild to moderate distress due to anxiety over chest discomfort. His exam is generally unremarkable. No lower extremity edema or calf tenderness. No abdominal tenderness. Lungs are clear heart is regular, distal pulses are 2+. Differential diagnosis based on history and physical exam arrhythmia, anxiety Labs independently reviewed and interpreted by me. His CBC is normal, his Chem- 12 is normal, his troponin is undetectable. His EKG is reassuring with no ST segment elevation or depression. No ectopy is on the EKG. Of note and monitoring his telemetry he does have infrequent PACs which correlate to his "discomfort". Reassurance is provided to the patient. No concerns at this time for acute coronary syndrome. He has follow-up scheduled with nursing director. Return precautions provided in both verbal and written format. All questions are sought and answered. Patient is stable for discharge Initial ECG Impression Date: Oct 20, 2022 Initial ECG Impression Time: 18:16 Initial ECG Rate: 83 Initial ECG Rhythm: Normal Sinus Initial ECG Impression: Nonspecific Changes Departure Impression Primary Impression: Palpitations with regular cardiac rhythm Disposition: 01 HOME, SELF-CARE Condition: Stable Departure-Patient Inst. Decision time for Depature: 19:34 Referrals: SULAIMAN MILLER MD (PCP/Family) Primary Care Physician Patient Instructions: Palpitations (DC) Add. Discharge Instructions: Drink plenty of fluids to stay well hydrated. Try and get adequate rest and nutrition. De-stress as much as you can, Self care is important when dealing with increased stress. Keep your follow up appointment with Cardiology. If you have any worsening pain, palpitations, with nausea or shortness of breath - return to the Emergency Department for re-evaluation. Copy Copies To 1: SULAIMAN MILLER MD, KATHRYN M MD Oct 20, 2022 19:40
[2022-10-20 19:52] VITALS: BP 126/86
== END 2022-10-20 19:54 | disposition home or self-care (01) ==
LOC: EDUNIT# 18:06 → ER 18:09
DX: R00.2 Palpitations (principal); Z98.61 Coronary angioplasty status; Z28.310 Unvaccinated for COVID-19
CPT/HCPCS: 36415; 80053; 83735; 84443; 84484; 85025; 93005; 93041

== ENCOUNTER 2022-12-19 13:39 | Outpatient (CLI) | payer BC | END 2022-12-19 13:55 | LOC: SLEEP 13:39 | PROVIDERS: ATTEND Internal Medicine Cardiovascular Disease | DX: G47.33 Obstructive sleep apnea (adult) (pediatric) (principal); G47.10 Hypersomnia, unspecified; R06.83 Snoring; I49.9 Cardiac arrhythmia, unspecified | CPT/HCPCS: G0399 ==